=== PATIENT | female | born 1990 | race African-American/Black ===

== ENCOUNTER 2016-03-30 22:21 | Emergency (ER) | payer OTHER ==
[~2016-03-30 22:21] MED LIST: DOCU-27 PO; IBUP-1060 PO; OXYC-323 PO
[2016-03-30 22:43] VITALS: BP 124/65
[2016-03-30] MEDS ORDERED: SULF1TAB24 PO (22:57)
--- NOTE | 2016-03-30 22:58 | PHYS DOC ---
Past Medical History Past Medical History: No Pertinent History Past Surgical History: Alcohol Use: None Drug Use: None Adult General Chief Complaint Chief Complaint: ABSCESS HPI HPI Patient is a 25 year old female who presents with an abscess of the right and slept that she noted 2 days ago. Patient states she has tried applying warm compresses to the area. Patient denies any fever. Review of Systems Review of Systems Constitutional: See history of present illness Musculoskeletal: Denies back pain or joint pain [] Integument: Abscess to the right axilla Neurologic: Denies headache, focal weakness or sensory changes [] Endocrine: Denies polyuria or polydipsia [] Allergies Allergies Allergies Coded Allergies Type Severity Reaction Last Updated Verified No Known Drug Allergies 04/27/15 No Physical Exam Physical Exam Constitutional: Well developed, well nourished, no acute distress, non-toxic appearance. [] Skin: Right axilla with an area of induration approximately 1 x 1 cm, the area has redness its warm to touch tender but not fluctuant. Back: No tenderness, no CVA tenderness. [] Extremities: No tenderness, no cyanosis, no clubbing, ROM intact, no edema. [] Neurologic: Alert and oriented X 3, normal motor function, normal sensory function, no focal deficits noted. [] Psychologic: Affect normal, judgement normal, mood normal. [] Current Patient Data Vital Signs Vital Signs Date Time Temp Pulse Resp B/P Pulse Ox O2 Delivery O2 Flow Rate FiO2 03/30/16 22:43 98.3 73 18 99 Room Air 98.3 EKG EKG [] Radiology/Procedures Radiology/Procedures [] Course & Med Decision Making Course & Med Decision Making Pertinent Labs and Imaging studies reviewed. (See chart for details) Patient is an abscess with cellulitis on the right axilla, the abscess is not ready to be drained. Recommended she continues doing the warm compresses. Discharged Bactrim. Follow-up with her own PCP or the provided doctor in a week. Instructed to return to the ED if symptoms worsen or she has any concerning symptoms. Dragon Disclaimer Dragon Disclaimer This electronic medical record was generated, in whole or in part, using a voice recognition dictation system. Departure Departure Impression: Primary Impression: Cellulitis and abscess of upper arm and forearm Disposition: 01 HOME, SELF-CARE Condition: STABLE Referrals: WARREN SILVERMAN MD (PCP) Follow-up with your own doctor in one week Patient Instructions: Abscess Additional Instructions: You have an abscess of the right axilla, continue applying warm compresses to the area twice a day. Take the prescribed antibiotics until they're finished. Come back to the emergency room if you develop any concerning symptoms or the current symptoms worsen. Scripts Sulfamethoxazole/Trimethoprim (Bactrim Ds Tablet)1 Each Tablet1 Tab PO BID #20 TAB Prov:KWABENA MCBRIDE APRN 03/30/16 KWABENA MCBRIDE APRN Mar 30, 2016 22:57
== END 2016-03-30 23:12 | disposition home or self-care (01) ==
LOC: ER 22:21
DX: L02.411 Cutaneous abscess of right axilla (principal)
CPT/HCPCS: 99283

== ENCOUNTER 2017-12-09 08:26 | Emergency (ER) | payer SELFPAY ==
[~2017-12-09] VITALS: Ht 160 cm; Wt 59.0 kg
[~2017-12-09 08:26] MED LIST changes: +DOCU-109 PO; -DOCU-27 PO; +SULF1TAB24 PO
[2017-12-09 08:47] VITALS: BP 114/75
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
[2017-12-09] MEDS ORDERED: HYDROcodone/APAP 5/325MG 1 TAB TABLET PO ONE (09:00)
[2017-12-09] MEDS ORDERED: FLUORESCEIN OPHTH TEST STRIP. OD ONE (09:00)
[2017-12-09] MEDS ORDERED: TETRACAINE 0.5% OPHTH SOLUTION 4ML BOTTLE. OD ONE (09:00)
[2017-12-09] MEDS ORDERED: DIPHTH,PERTUSS(ACELL),TET TOX 0.5 ML DISP.SYRIN. VAX IM ONE (09:00)
[2017-12-09] MEDS ORDERED: ERYT1OIN6 OP ×2 (09:21→09:25)
[2017-12-09] MEDS ORDERED: TRAM50TA PO (09:25)
== END 2017-12-09 09:35 | disposition home or self-care (01) ==
LOC: ER 08:26
DX: S05.11XA Contusion of eyeball and orbital tissues, right eye, initial encounter (principal); S05.01XA Injury of conjunctiva and corneal abrasion without foreign body, right eye, initial encounter; Z98.890 Other specified postprocedural states; Y04.0XXA Assault by unarmed brawl or fight, initial encounter; Y93.89 Activity, other specified; Y92.89 Other specified places as the place of occurrence of the external cause; Y99.8 Other external cause status
CPT/HCPCS: 90471; 90715; 99284